=== PATIENT | female | born 1940 | race Caucasian/White ===

== ENCOUNTER → 2016-08-21 | Outpatient (CLI) | payer MEDICARE ==
[~2016-08-21] MED LIST: AMIT100T2 PO; AMIT100T6 PO; BIOT10TA PO; CLOR3.755; CLOR3.755 PO; LEVO.075 PO; LEVO50TA51 PO; MELO-1 PO; MOBI15TA PO; OMEP20TA PO; PROT40TA PO; RANI150T PO
[2016-08-21 09:48] LABS: HEMATOCRIT 39.6 % (35.0-46.0); MEAN CELL VOLUME 90.6 FL (80.0-100.0); MEAN CORPUSCULAR HEMOGLOBIN 30.4 PG (27.0-34.0); MEAN CORPUSCULAR HGB CONC 33.6 % (32.0-36.0); PLATELET COUNT 299 TH/MM3 (150-450); RED BLOOD COUNT 4.37 MIL/MM3 (4.00-5.30); RED CELL DISTRIBUTION WIDTH 12.7 % (11.6-17.2); REVIEW FLAG FINAL; WHITE BLOOD COUNT 5.6 TH/MM3 (4.0-11.0)
[2016-08-21 09:49] LABS: BACTERIA, URINE OCC /hpf; BLOOD, URINE NEG (NEG); COMMENT (UR) CATH-CULTURE IND; CULTURE IF INDICATED CATH CULTURE IND; GLUCOSE,URINE NEG (NEG); KETONE, URINE NEG (NEG); PH, URINE 6.5 (5.0-8.5); URINE COLOR LIGHT-YELLOW (YELLW/STRAW)
[2016-08-21 09:50] LABS: NITRITE,URINE POS (NEG)
[2016-08-21 09:56] LABS: APTT (PATIENT) 29.1 SEC (24.3-30.1); PROTHROMBIN TIME - PATIENT 10.5 SEC (9.8-11.6)
[2016-08-21 10:11] LABS: BICARBONATE 30.4 MEQ/L (21.0-32.0); POTASSIUM 3.9 MEQ/L (3.5-5.1)
--- NOTE | 2016-08-21 18:22 | EKG ---
Date Performed: 08/21/2016 Time Performed: 09:46:09 PTAGE: 76 years EKG: Sinus rhythm NORMAL ECG PREVIOUS TRACING 06/07/93 @ 22.00.43 Compared to prior tracing no significant change DOCTOR: Gladis Mchugh Interpretating Date/Time 08/21/2016 18:20:51
== END ==
LOC: CPRE 09:01
PROVIDERS: ATTEND Orthopaedic Surgery
DX: Z01.810 Encounter for preprocedural cardiovascular examination (principal); Z01.812 Encounter for preprocedural laboratory examination; M17.11 Unilateral primary osteoarthritis, right knee; M79.609 Pain in unspecified limb; B96.20 Unspecified Escherichia coli [E. coli] as the cause of diseases classified elsewhere; R82.99 Other abnormal findings in urine
CPT/HCPCS: 36415; 80048; 81001; 85027; 85610; 85730; 87077; 87086; 87186; 93005

== ENCOUNTER 2016-09-01 14:56 | Inpatient (IN) | payer MEDICARE ==
[~2016-09-01] VITALS: Ht 160 cm; Wt 60.7 kg
[~2016-09-01 14:56] MED LIST changes: -ASPI-99 PO; -DILA2TAB2 PO; -OXYC1TAB63 PO
[2016-09-02] VITALS (7 sets, daily range): BP systolic 121–156; BP diastolic 54–81; PULSE 71–92; RESP 18–19; TEMP 96.3–98.6; O2SAT 95–98
[2016-09-02] MEDS ORDERED: METOPROLOL TARTRATE 25 MG TAB PO PRN (05:45)
[2016-09-02] MEDS ORDERED: ceFAZolin 2 GM PREMIX 50 ML IV SCH (05:45)
[2016-09-02] MEDS ORDERED: CHLORHEXIDINE GLUCONATE 4% SOLN 120 ML BTL TOPICAL SCH (05:45)
[2016-09-02] MEDS ORDERED: CHLORHEXIDINE GLUCONATE 2 % 1 PACK (2 CLOTHS) TOPICAL PRN (05:45)
[2016-09-02] MEDS ORDERED: POVIDONE IODINE 5% (ANTISEPSIS KIT) 4 APPLICATIONS EACH NARE PRN (05:45)
[2016-09-02] MEDS ORDERED: INSULIN HUMAN REGULAR 1,000 UNITS/10 ML VIAL SQ PRN (05:45)
[2016-09-02] MEDS ORDERED: LACTATED RINGER'S 1000 ML IV PRN (05:45)
[2016-09-02] MEDS ORDERED: SODIUM CHLORID 0.9% 500 ML IV PRN (05:45)
[2016-09-02] MEDS ORDERED: TRANEXAMIC ACID IV SCH ×2 (06:00→09:00)
[2016-09-02] MEDS ORDERED: SODIUM CHLORIDE 0.9% IV SCH ×2 (06:00→09:00)
[2016-09-02] MEDS ORDERED: EXPAREL PERI-ARTICULAR INJECTION (TOTAL VOL. 100 ML) P-ARTICULR SCH ×2 (06:00)
[2016-09-02] MEDS ORDERED: GENTAMICIN SULFATE 80 MG/2 ML VIAL ONE (06:06)
[2016-09-02] MEDS ORDERED: MIDAZOLAM HCL 2 MG/2 ML VIAL ONE (06:37)
[2016-09-02] MEDS ORDERED: ASPI-99 PO (06:56)
[2016-09-02] MEDS ORDERED: Post-op Orders (for Pharmacy) MISC XX ONE (07:00)
[2016-09-02] MEDS ORDERED: SODIUM CHLORIDE 0.9% FLUSH 5 ML FLUSH IVF PRN (07:00)
[2016-09-02] MEDS ORDERED: ZOLPIDEM TARTRATE 5 MG TAB PO PRN (07:00)
[2016-09-02] MEDS ORDERED: TRANEXAMIC ACID INJ 0 MG in SODIUM CHLORIDE 0.9% INJ 100 ML IV SCH (07:00)
[2016-09-02] MEDS ORDERED: ACETAMINOPHEN/HYDROcodone 325 MG/7.5 MG TAB PO PRN (07:00)
[2016-09-02] MEDS ORDERED: ONDANSETRON HCL 4 MG/2 ML VIAL IVP PRN (07:00)
[2016-09-02] MEDS ORDERED: MAGNESIUM HYDROXIDE SUSP 30 ML CUP PO PRN (07:00)
--- NOTE | 2016-09-02 07:00 | HHI.FF ---
Face to Face Verification Diagnosis: (1) Status post total right knee replacement Physical Therapy Gait training Knee: Total knee, Protocol: Right, Gait training, Full weight bearing Right LE Weight Bearing: WB as tolerated Right LE Range of Motion: Active ROM (AROM, AAROM, PROM, PRE. ROM goal is 0 to 140 degrees. ROM in the OR was 0 to 150 degrees.) Nursing Nursing: Dressing changes Dressing Changes: Daily dressing change, Coverderm/Primapore Additional Instructions Remove steristrips on postop day 14. I have seen patient Katerina Odonnell on 09/02/16. My clinical findings support the need for the requested home health care services because: Ltd mobility - disease progression Limited ability to care for self High risk of falls I certify that my clinical findings support that this patient is homebound because: Post-op weakness Unsteady gait/balance Unsafe to leave home unassisted Abimael Henley MD ([facility]) Sep 02, 2016 07:00
[2016-09-02] MEDS ORDERED: CLORAZEPATE 3.75 MG PO (07:30)
[2016-09-02] MEDS ORDERED: [UNRECOGNIZED DRUG - OTHER] PO (07:30)
[2016-09-02] MEDS ORDERED: ASPIRIN EC 81 MG TABEC PO SCH (08:00)
[2016-09-02] MEDS ORDERED: NON-FORMULARY DRUG (Biotin 10 MG) PO SCH (09:00)
[2016-09-02] MEDS ORDERED: DO NOT ADM ANY ANTICOAGULANT DRUGS PRN (09:23)
--- NOTE | 2016-09-02 09:52 | RADRPT ---
EXAM DATE/TIME: 09/02/2016 09:31 [place] COMPARISON: No previous studies available for comparison. INDICATIONS : Post-op total right knee arthroplasty. MEDICAL HISTORY : None. SURGICAL HISTORY : Right knee arthroscopy. ENCOUNTER: Initial ACUITY: 1 day PAIN SCORE: 0/10 LOCATION: Right Knee FINDINGS: Two view examination of the right knee demonstrates the patient's had a total knee arthroplasty. Surg ical drains overlie the suprapatellar bursa. The hardware is in excellent position without complicati on.. CONCLUSION: Total knee arthroplasty in excellent position. Crow Bowles MD on September 02, 2016 at 9:49 Board Certified Radiologist. This report was verified electronically.
[2016-09-02] MEDS: SODIUM CHLORIDE 0.9% FLUSH 5 ML FLUSH IVF SCH ×2 (10:00→21:00)
[2016-09-02] MEDS: LACTATED RINGER'S 1000 ML INJ 1,000 ML IV SCH ×2 (10:00→22:30)
[2016-09-02] MEDS: KETOROLAC TROMETHAMINE 30 MG/ML (IVP) VIAL IVP SCH ×3 (10:48→23:28)
[2016-09-02] MEDS ORDERED: *LABETALOL HCL 100 MG/20 ML VIAL PERIprocedural Use ONLY ONE (11:02)
[2016-09-02] MEDS ORDERED: LACTATED RINGER'S 1000 ML INJ 1,000 ML IV ONE (12:00)
[2016-09-02] MEDS ORDERED: PHENYLEPH/NS 1000 MCG/10 ML SYR IV ONE (12:00)
[2016-09-02] MEDS ORDERED: PROPOFOL 200 MG/20 ML AMP IV ONE (12:00)
[2016-09-02] MEDS: ACETAMINOPHEN/HYDROcodone 325 MG/7.5 MG TAB PO PRN ×2 (12:24→17:41)
--- NOTE | 2016-09-02 14:36 | PD.CONS ---
HPI Service [facility] Hospitalists Consult Requested By Dr. Henley. Reason for Consult Medical management. Primary Care Physician Britta Almanza MD Diagnoses: (1) Primary osteoarthritis of right knee (2) Status post total right knee replacement History of Present Illness Written by Isadora Milton, acting as scribe for Dr. Alexander on 09/02/16 at 14:20. Ms. Odonnell is a 76-year-old female patient with a known medical history of anxiety, fibromyalgia, hypothyroidism, GERD, arthritis and osteoarthritis of the right knee who underwent a right total knee arthroplasty today, 09/02/16, by Dr. Henley. Hospitalist team has been consulted for medical management. Patient seen and examined in hospital room with son at bedside. Patient states that the degenerative changes and osteoarthritis began roughly in the year 2008 when she underwent a scope of the right knee by Dr. Henley. She states she has been battled intermittent swelling and pain in the right knee since that time of the scope which was mostly relieved by NSAID and rest. Eventually the pain began worse impeding her activity level and requiring use of a walker at home. Denies any recent fever, chills, cough, shortness of breath, abdominal pain, nausea, vomiting, diarrhea or dysuria. Does state that during the pre op work up she as found to have a UTI positive for E.coli which was treated with Cipro x 7 days prior to undergoing right knee arthroplasty. PCP is Dr. Almanza. Review of Systems Musculoskeletal: COMPLAINS OF: Joint pain (right knee) Psychiatric: COMPLAINS OF: Anxiety Except as stated in HPI: all other systems reviewed are Neg Past Family Social History Allergies: Coded Allergies: Flagyl (Verified Allergy, Intermediate, RASH, 08/21/16) Plaquenil (Verified Allergy, Intermediate, RASH, 08/21/16) Sulfa (Verified Allergy, Intermediate, swelling, 08/21/16) Past Medical History Arthritis Osteoarthritis of right knee Anxiety Hypertension Hypothyroidism GERD Fibromyalgia Past Surgical History Tonsillectomy Adenoidectomy Total hysterectomy Appendectomy Cholecystectomy Right mastectomy and reconstruction 1998 Bilateral carpal tunnel Reported Medications Active Reported Biotin 10 Mg Tab 10 Mg PO DAILY Clorazepate (Clorazepate Dipotassium) 3.75 Mg Tab 3.75 Mg PO BID PRN Omeprazole 20 Mg Tab 20 Mg PO DAILY Synthroid (Levothyroxine Sodium) 75 Mcg Tab 75 Mcg PO DAILY Meloxicam 15 Mg Tab 15 Mg PO DAILY Amitriptyline (Amitriptyline HCl) 100 Mg Tab 100 Mg PO HS Active Ordered Medications Current Medications Medications (Trade) Dose Ordered Sig/Ganesh Route Start Time Stop Time Status Last Admin Chlorhexidine Gluconate 1 applic 1 applic ONCE TOPICAL 09/02/16 05:45 09/05/16 05:44 09/02/16 06:00 Tranexamic Acid 568 mg/Sodium Chloride 105.68 ml @ 200 mls/ hr ONCE IV 09/02/16 09:00 09/02/16 15:00 09/02/16 10:08 Lactated Ringer's 1,000 ml @ 30 mls/hr Q24H PRN IV 09/02/16 05:45 09/05/16 05:44 09/02/16 05:50 Sodium Chloride 500 ml @ 30 mls/hr [id number] PRN IV 09/02/16 05:45 09/05/16 05:44 (Lr 1000 ml Inj) 1,000 ml @ 80 mls/hr [id number] IV 09/02/16 10:00 09/02/16 10:00 (NS Flush) 2 ml UNSCH PRN IVF 09/02/16 07:00 IV Flush 2 ml 2 ml BID IVF 09/02/16 09:00 09/02/16 10:00 (Ancef Inj/NS Inj) 100 ml @ 200 mls/hr Q6H IV 09/02/16 12:00 09/03/16 00:29 09/02/16 10:49 ([place] 7.5-325 Mg) 1 tab Q4H PRN PO 09/02/16 07:00 ([place] 7.5-325 Mg) 2 tab Q4H PRN PO 09/02/16 07:00 09/02/16 12:24 (Toradol Inj) 15 mg Q6H IVP 09/02/16 11:00 09/04/16 05:01 09/02/16 10:48 (Zofran Inj) 4 mg Q6H PRN IVP 09/02/16 07:00 (Colace) 100 mg BID PO 09/03/16 21:00 (Ambien) 5 mg HS PRN PO 09/02/16 07:00 (Milk Of Magnesia Liq) 30 ml DAILY PRN PO 09/02/16 07:00 (Elavil) 100 mg HS PO 09/02/16 21:00 (Synthroid) 75 mcg DAILY@0600 PO 09/03/16 06:00 Patient Own Medication PT OWN MED: CLORAZEP... BID PRN PO 09/02/16 07:30 Hold (Protonix) 20 mg DAILY PO 09/03/16 09:00 Miscellaneous Information ALL NURSING DEPARTME... UNSCH PRN .XX 09/02/16 09:23 09/03/16 09:22 (Ecotrin Ec) 81 mg Q12H PO 09/03/16 08:00 Family History Paternal family history significant for renal carcinoma and CABG x 2 Maternal family history significant for arthritis and CVA. Social History Patient lives at home with son. Denies any current or past tobacco use. Admits to occasional social drink. Denies any illicit drug use. Physical Exam Vital Signs Vital Signs Date Time Temp Pulse Resp B/P Pulse Ox O2 Delivery O2 Flow Rate FiO2 09/02/16 12:00 97.9 71 19 130/68 97 09/02/16 11:40 62 16 135/63 99 Room Air 09/02/16 11:30 62 16 160/77 100 Room Air 09/02/16 11:15 66 16 169/70 99 Room Air 09/02/16 11:00 80 16 172/81 99 Room Air 09/02/16 10:45 76 16 170/79 100 Room Air 09/02/16 10:30 72 16 175/77 100 Room Air 09/02/16 10:15 72 16 151/67 100 Room Air 09/02/16 10:00 74 16 133/62 100 09/02/16 09:45 76 16 118/56 100 Nasal Cannula 2 09/02/16 09:30 82 16 114/57 99 Nasal Cannula 2 09/02/16 09:25 97.8 88 16 109/59 97 Nasal Cannula 2 09/02/16 05:56 98.6 92 18 156/81 96 Physical Exam GENERAL: Well-nourished, well-developed patient, in no apparent distress. SKIN: No rashes, ecchymoses or lesions. Warm and dry. Right lower extremity bandage in place, c/d/i. HEENT: Atraumatic. Normocephalic. Pupils equal round and reactive. Extraocular motions intact. No scleral icterus. No injection or drainage. Nose without bleeding. Airway patent. NECK: Trachea midline. No JVD. Supple. CARDIOVASCULAR: Regular rate and rhythm. No murmur appreciated. RESPIRATORY: Clear to auscultation. Breath sounds equal bilaterally. No wheezes , rales, or rhonchi. GASTROINTESTINAL: Abdomen soft, non-tender, nondistended. No guarding. MUSCULOSKELETAL: Extremities without clubbing, cyanosis, or edema. No joint tenderness, effusion, or edema noted. NEUROLOGICAL: Awake and alert. Cranial nerves II through XII intact. Motor and sensory grossly within normal limits. Five out of 5 muscle strength in all muscle groups. Normal speech. Laboratory Laboratory Tests Test 09/02/16 05:50 Blood Type A POSITIVE Antibody Screen NEGATIVE Blood Bank Comment Imaging Last Impressions Knee X-Ray 09/02/16 0650 Signed Impressions: Service Date/Time: Friday, September 02, 2016 09:31 - CONCLUSION: Total knee arthroplasty in excellent position. Crow Bowles MD Assessment and Plan Assessment and Plan Ms. Odonnell is a 76-year-old female patient with a known medical history of anxiety, fibromyalgia, hypothyroidism, GERD, arthritis and osteoarthritis of the right knee who underwent a right total knee arthroplasty today, 09/02/16, by Dr. Henley. Hospitalist team has been consulted for medical management. Status post total right knee arthroplasty - Post op day 0, 09/02/16 - Dressing changes and immobilizer per ortho recommendations. - Monitor for constipation. Colace 100 mg PO BID. Milk Of Magnesium PRN as needed. - Encourage PO intake. Continue regular diet. - Control pain. [place] 7.5/325 mg PO q4h PRN per pain scale. Toradol IV scheduled. - Monitor for nausea, Zofran PRN. Hypertension, chronic: Controlled at this time. Monitor BP. Other chronic medical problems include anxiety, arthritis, fibromyalgia, hypothyroidism, and GERD and are stable at this time. Home medications are continued as indicated. GI prophylaxis: Protonix DVT prophylaxis: SCDs. Lovenox. Thank you for this consultation. Will follow with you. This note was transcribed by [email or web address] [Isadora Milton]. I, Dr. Kai Alexander personally performed the history, physical exam, and medical decision making; and confirmed the accuracy of the information in the transcribed note. Authenticated by Dr. Kai Alexander on 09/03/16 at 07:51. Isadora Milton Sep 02, 2016 14:36 Kai Alexander MD Sep 03, 2016 07:51
[2016-09-02] MEDS: AMITRIPTYLINE HCL 100 MG TAB PO SCH (21:29)
[2016-09-02] MEDS: oxyCODONE/ACETAMINOPHEN 5 MG/325 MG TAB PO PRN (21:42)
[2016-09-02] MEDS ORDERED: oxyCODONE/ACETAMINOPHEN 5 MG/325 MG TAB PO PRN (22:00)
[2016-09-03 04:10] VITALS: BP 136/56; PULSE 86; RESP 18; TEMP 97.1; O2SAT 96
[2016-09-03] MEDS: KETOROLAC TROMETHAMINE 30 MG/ML (IVP) VIAL IVP SCH ×4 (05:27→23:28)
[2016-09-03] MEDS: LEVOTHYROXINE SODIUM 75 MCG TAB PO SCH (05:27)
[2016-09-03] MEDS: oxyCODONE/ACETAMINOPHEN 5 MG/325 MG TAB PO PRN ×4 (05:29→20:24)
[2016-09-03 06:58] LABS: BICARBONATE 26.5 MEQ/L (21.0-32.0); POTASSIUM 3.8 MEQ/L (3.5-5.1)
[2016-09-03 07:03] LABS: HEMATOCRIT 31.1 % (35.0-46.0); MEAN CELL VOLUME 92.8 FL (80.0-100.0); MEAN CORPUSCULAR HEMOGLOBIN 31.3 PG (27.0-34.0); MEAN CORPUSCULAR HGB CONC 33.7 % (32.0-36.0); PLATELET COUNT 216 TH/MM3 (150-450); RED BLOOD COUNT 3.35 MIL/MM3 (4.00-5.30); RED CELL DISTRIBUTION WIDTH 12.7 % (11.6-17.2); REVIEW FLAG FINAL; WHITE BLOOD COUNT 7.6 TH/MM3 (4.0-11.0)
--- NOTE | 2016-09-03 07:14 | PD.ORT.PN ---
Subjective Post Op Day #: 1 Subjective Remarks She is doing well, with little pain. She had nausea with [place] but tolerates Percocet. Range of Motion 0 to 90 degrees. Distance Walked 150 feet. Objective Vitals Vital Signs Date Time Temp Pulse Resp B/P Pulse Ox O2 Delivery O2 Flow Rate FiO2 09/03/16 04:10 97.1 86 18 136/56 96 09/02/16 23:31 98.5 84 18 137/63 97 09/02/16 20:43 96 21 09/02/16 20:28 96.7 72 18 121/54 96 09/02/16 18:45 16 09/02/16 18:45 16 09/02/16 16:00 96.3 77 18 152/64 95 09/02/16 14:22 98 09/02/16 12:00 97.9 71 19 130/68 97 09/02/16 11:40 62 16 135/63 99 Room Air 09/02/16 11:30 62 16 160/77 100 Room Air 09/02/16 11:15 66 16 169/70 99 Room Air 09/02/16 11:00 80 16 172/81 99 Room Air 09/02/16 10:45 76 16 170/79 100 Room Air 09/02/16 10:30 72 16 175/77 100 Room Air 09/02/16 10:15 72 16 151/67 100 Room Air 09/02/16 10:00 74 16 133/62 100 09/02/16 09:45 76 16 118/56 100 Nasal Cannula 2 09/02/16 09:30 82 16 114/57 99 Nasal Cannula 2 09/02/16 09:25 97.8 88 16 109/59 97 Nasal Cannula 2 I/O 09/02/16 09/02/16 09/02/16 09/03/16 09/03/16 09/03/16 07:00 15:00 23:00 07:00 15:00 23:00 Intake Total 100 ml 1080 ml 240 ml Output Total 50 ml 50 ml 30 ml Balance 50 ml 1030 ml 210 ml Intake Oral 1080 ml 240 ml IV Total 100 ml Output Drainage Total 50 ml 50 ml 30 ml # Voids 5 2 # Bowel Movements 0 0 Result Diagram: 09/03/16 0556 Imaging Last 72 hours Impressions Knee X-Ray 09/02/16 0650 Signed Impressions: Service Date/Time: Friday, September 02, 2016 09:31 - CONCLUSION: Total knee arthroplasty in excellent position. Crow Bowles MD Objective Remarks She is resting comfortably, supine in bed in the [facility]. The dressing is dry and intact. The neurovascular status is intact. Assessment & Plan Ortho Post Op Day #: 1 Problem List: (1) Status post total right knee replacement Plan: Continue postop care and PT. Assessment and Plan Condition: Good. Orthopaedically stable. DVT prophylaxis: TEDs, sequentials, ASA. Discharge plans: Home with [facility]. Has appointment. Rx: Percocet 5/325. Abimael Henley MD ([place]) Sep 03, 2016 07:13
[2016-09-03] MEDS ORDERED: OXYC1TAB63 PO (07:49)
[2016-09-03 08:00] VITALS: BP 121/53; PULSE 89; RESP 16; TEMP 96.6; O2SAT 96
[2016-09-03] MEDS: SODIUM CHLORIDE 0.9% FLUSH 5 ML FLUSH IVF SCH ×2 (09:00→20:24)
[2016-09-03] MEDS: ASPIRIN EC 81 MG TABEC PO SCH ×2 (09:41→20:22)
[2016-09-03] MEDS: PANTOPRAZOLE SOD 20 MG DELAYED RELEASE TAB PO SCH (09:41)
[2016-09-03] MEDS: LACTATED RINGER'S 1000 ML INJ 1,000 ML IV SCH ×2 (09:42→23:30)
[2016-09-03 09:51] VITALS: O2SAT 98
--- NOTE | 2016-09-03 11:12 | HHI.PR ---
Subjective Remarks Hemoglobin 10.5 this morning. Patient's only complaint is that her pain medications are holding her pain. We discussed adding a breakthrough pain treatment. Objective Vital Signs Date Time Temp Pulse Resp B/P Pulse Ox O2 Delivery O2 Flow Rate FiO2 09/03/16 09:51 98 21 09/03/16 08:00 96.6 89 16 121/53 96 09/03/16 04:10 97.1 86 18 136/56 96 09/02/16 23:31 98.5 84 18 137/63 97 09/02/16 20:43 96 21 09/02/16 20:28 96.7 72 18 121/54 96 09/02/16 18:45 16 09/02/16 18:45 16 09/02/16 16:00 96.3 77 18 152/64 95 09/02/16 14:22 98 09/02/16 12:00 97.9 71 19 130/68 97 09/02/16 11:40 62 16 135/63 99 Room Air 09/02/16 11:30 62 16 160/77 100 Room Air 09/02/16 11:15 66 16 169/70 99 Room Air I/O 09/02/16 09/02/16 09/02/16 09/03/16 09/03/16 09/03/16 06:59 14:59 22:59 06:59 14:59 22:59 Intake Total 100 ml 1080 ml 240 ml Output Total 50 ml 50 ml 30 ml Balance 50 ml 1030 ml 210 ml Intake Oral 1080 ml 240 ml IV Total 100 ml Output Drainage Total 50 ml 50 ml 30 ml # Voids 5 2 # Bowel Movements 0 0 Result Diagram: 09/03/16 0556 09/03/16 0556 Objective Remarks GENERAL: NAD, A&Ox3 HEAD: Normocephalic. NECK: Supple, trachea midline. No lymphadenopathy. EYES: No scleral icterus. No injection or drainage. CARDIOVASCULAR: Regular rate and rhythm without murmurs, gallops, or rubs. RESPIRATORY: Breath sounds equal bilaterally. No accessory muscle use. GASTROINTESTINAL: Abdomen soft, non-tender, nondistended. MUSCULOSKELETAL: No cyanosis, or edema. Right knee bandage with limited range of motion secondary to pain, postop. SKIN: Warm and dry. NEURO: No focal neurological deficitis. A/P Problem List: (1) Primary osteoarthritis of right knee ICD Code: M17.11 (2) Status post total right knee replacement ICD Code: Z96.651 Assessment and Plan Assessment and plan 76-year-old female status post right total knee. Status post total right knee arthroplasty When necessary Dilaudid for breakthrough pain added to current pain regime. Continue Percocet for pain (she had nausea with [place]) Tolerating diet Working with PT Hypertension Resume baseline treatments Controlled Follow blood pressure anxiety arthritis fibromyalgia hypothyroidism GERD Continue baseline treatments All these conditions are stable this time Follow as an outpatient DVT prophylaxis SCDs. Joshua. Kai Alexander MD Sep 03, 2016 11:12
[2016-09-03 12:00] VITALS: BP 103/46; PULSE 88; RESP 16; TEMP 96.2; O2SAT 97
[2016-09-03] MEDS: HYDROmorphone HCL 2 MG TAB PO PRN ×2 (12:08→17:06)
[2016-09-03 16:00] VITALS: BP 136/50; PULSE 86; RESP 16; TEMP 96.1; O2SAT 98
[2016-09-03 20:08] VITALS: BP 143/62; PULSE 90; RESP 18; TEMP 97.4; O2SAT 95
[2016-09-03] MEDS: DOCUSATE SODIUM 100 MG CAP PO SCH (20:23)
[2016-09-03] MEDS: AMITRIPTYLINE HCL 100 MG TAB PO SCH (20:23)
[2016-09-04 00:12] VITALS: BP 106/52; PULSE 93; RESP 18; TEMP 98.4; O2SAT 94
[2016-09-04 03:30] VITALS: BP 124/63; PULSE 94; RESP 18; TEMP 98.9; O2SAT 96
[2016-09-04] MEDS: LEVOTHYROXINE SODIUM 75 MCG TAB PO SCH (05:26)
[2016-09-04] MEDS: oxyCODONE/ACETAMINOPHEN 5 MG/325 MG TAB PO PRN ×2 (05:27→11:48)
[2016-09-04] MEDS: KETOROLAC TROMETHAMINE 30 MG/ML (IVP) VIAL IVP SCH (05:28)
--- NOTE | 2016-09-04 06:52 | PD.ORT.PN ---
Subjective Post Op Day #: 2 Subjective Remarks She is doing well, with little pain. She has done well with PT. Range of Motion 0 to 90 degrees. Distance Walked 90 feet, limited by nausea. Objective Vitals Vital Signs Date Time Temp Pulse Resp B/P Pulse Ox O2 Delivery O2 Flow Rate FiO2 09/04/16 03:30 98.9 94 18 124/63 96 09/04/16 00:28 18 09/04/16 00:12 98.4 93 18 106/52 94 09/03/16 21:24 18 09/03/16 20:08 97.4 90 18 143/62 95 09/03/16 16:00 96.1 86 16 136/50 98 09/03/16 12:00 96.2 88 16 103/46 97 09/03/16 09:51 98 21 09/03/16 08:00 96.6 89 16 121/53 96 I/O 09/03/16 09/03/16 09/03/16 09/04/16 09/04/16 09/04/16 07:00 15:00 23:00 07:00 15:00 23:00 Intake Total 240 ml 720 ml 840 ml 360 ml Output Total 30 ml Balance 210 ml 720 ml 840 ml 360 ml Intake Oral 240 ml 720 ml 840 ml 360 ml Output Drainage Total 30 ml # Voids 2 3 6 1 # Bowel Movements 0 0 0 0 Result Diagram: 09/03/16 0556 09/03/16 0556 Imaging Last 72 hours Impressions Knee X-Ray 09/02/16 0650 Signed Impressions: Service Date/Time: Friday, September 02, 2016 09:31 - CONCLUSION: Total knee arthroplasty in excellent position. Crow Bowles MD Objective Remarks She is resting comfortably, supine in bed in the [facility]. The dressing is dry and intact. There is no erythema or induration. The neurovascular status is intact. Assessment & Plan Ortho Post Op Day #: 2 Problem List: (1) Status post total right knee replacement Plan: Continue postop care and PT. Assessment and Plan Condition: Good. Orthopaedically stable. DVT prophylaxis: TEDs, sequentials, ASA. Discharge plans: Home with C. Has appointment. Rx: Percocet 5/325. Abimael Henley MD ([place]) Sep 04, 2016 06:52
[2016-09-04 07:06] LABS: REVIEW FLAG FINAL
[2016-09-04 08:00] VITALS: BP 121/61; PULSE 92; RESP 18; TEMP 98.1; O2SAT 95
[2016-09-04] MEDS: DOCUSATE SODIUM 100 MG CAP PO SCH (08:24)
[2016-09-04] MEDS: PANTOPRAZOLE SOD 20 MG DELAYED RELEASE TAB PO SCH (08:24)
[2016-09-04] MEDS: ASPIRIN EC 81 MG TABEC PO SCH (08:25)
[2016-09-04] MEDS: HYDROmorphone HCL 2 MG TAB PO PRN (08:25)
[2016-09-04] MEDS: SODIUM CHLORIDE 0.9% FLUSH 5 ML FLUSH IVF SCH (08:31)
[2016-09-04 09:25] VITALS: RESP 18
[2016-09-04] MEDS ORDERED: DILA2TAB2 PO (11:10)
--- NOTE | 2016-09-04 11:11 | HHI.PR ---
Subjective Remarks Hemoglobin on 9.8. No need for transfusion through time. Patient is stable for discharge to home today. Ambulation is improved. Pain control is also improved. She is using 2 mg by mouth Dilaudid for breakthrough pain as Percocet is not completely holding her pain and she has been tolerating this treatment well for 24 hours. Medically stable and cleared for discharge home today. Objective Vital Signs Date Time Temp Pulse Resp B/P Pulse Ox O2 Delivery O2 Flow Rate FiO2 09/04/16 08:00 98.1 92 18 121/61 95 09/04/16 03:30 98.9 94 18 124/63 96 09/04/16 00:28 18 09/04/16 00:12 98.4 93 18 106/52 94 09/03/16 21:24 18 09/03/16 20:08 97.4 90 18 143/62 95 09/03/16 16:00 96.1 86 16 136/50 98 09/03/16 12:00 96.2 88 16 103/46 97 I/O 09/03/16 09/03/16 09/03/16 09/04/16 09/04/16 09/04/16 07:00 15:00 23:00 07:00 15:00 23:00 Intake Total 240 ml 720 ml 840 ml 360 ml Output Total 30 ml Balance 210 ml 720 ml 840 ml 360 ml Intake Oral 240 ml 720 ml 840 ml 360 ml Output Drainage Total 30 ml # Voids 2 3 6 1 # Bowel Movements 0 0 0 0 Result Diagram: 09/04/16 0646 09/03/16 0556 Objective Remarks GENERAL: NAD, A&Ox3 HEAD: Normocephalic. NECK: Supple, trachea midline. No lymphadenopathy. EYES: No scleral icterus. No injection or drainage. CARDIOVASCULAR: Regular rate and rhythm without murmurs, gallops, or rubs. RESPIRATORY: Breath sounds equal bilaterally. No accessory muscle use. GASTROINTESTINAL: Abdomen soft, non-tender, nondistended. MUSCULOSKELETAL: No cyanosis, or edema. Right knee bandage with limited range of motion secondary to pain, postop. SKIN: Warm and dry. NEURO: No focal neurological deficitis. A/P Problem List: (1) Primary osteoarthritis of right knee ICD Code: M17.11 (2) Status post total right knee replacement ICD Code: Z96.651 Assessment and Plan Assessment and plan 76-year-old female status post right total knee. Cleared for discharge home today. Continue pain treatments at home. Status post total right knee arthroplasty When necessary Dilaudid for breakthrough pain added to current pain regime. Continue Percocet for pain (she had nausea with [place]) Tolerating diet Working with PT Hypertension Resume baseline treatments Controlled Follow blood pressure anxiety arthritis fibromyalgia hypothyroidism GERD Continue baseline treatments All these conditions are stable this time Follow as an outpatient DVT prophylaxis SCDs. Lovenox. Kai Alexander MD Sep 04, 2016 11:11
--- NOTE | 2016-09-04 13:16 | MP ---
cc: Nancy COATS. DATE OF SURGERY 09/02/2016 REDICTATION OF DICTATION FROM 09/02/2016 PREOPERATIVE DIAGNOSIS Primary osteoarthritis, right knee. POSTOPERATIVE DIAGNOSIS Primary osteoarthritis, right knee. OPERATION PERFORMED Right total knee with Adbiel Triathlon prosthesis (uncemented). SURGEON Abimael Coats MD [facility] ANESTHESIA Spinal with supplemental adductor canal block and local. INDICATIONS AND FINDINGS This 76-year-old woman had significant pain in her left knee because of primary osteoarthritis. She had not responded to conservative measures as detailed in the history and physical examination. Physical findings showed significant degenerative change in the knee. X-rays showed loss of articular cartilage to [id number] with exposed subchondral bone and osteophytes. Operative findings were consistent with the radiographic findings with there being significant loss of articular cartilage down to exposed subchondral bone, osteophytes and eburnation. PROSTHESIS USED Abdiel Triathlon prosthesis with the femur being a size 2 cruciate-retaining uncemented, the tibia being a size 3 tritanium baseplate with a 9-mm cruciate-retaining X3 polyethylene spacer and a 32-mm asymmetric tritanium backed patella. PROCEDURE The patient was brought to the operating room which was a clean-air operating suite. She had an adductor canal block and spinal anesthetic administered by Shivam Childers MD. She was then placed in a supine position on the operating table with a small bolster under the right hip. A pneumatic tourniquet was placed about the right thigh but was not inflated during the procedure. She received prophylactic antibiotics in the form of Ancef 2 grams at the appropriate interval on arrival in the operating room. She also received tranexamic acid to help with hemostasis. The right knee was then prepped with alcohol, Hibiclens and Chloraprep and draped in the usual manner with the knee draped free. An appropriate time-out procedure was carried out. Local anesthesia was administered in the incision site prior to making the incision. An incision was then made from about three fingerbreadths above the superior medial pole of the patella down to the tibial tubercle. The incision was deepened through the subcutaneous tissues to the retinacular structures which were exposed medially and laterally. A medial retinacular incision was then made from the superior medial pole of the patella down to the tibial tubercle and up into the quadriceps, splitting it longitudinally in the medial one-third. The patella was reflected. The infrapatellar fat pad was debulked. Medial and lateral dissection was carried out. The posterior surface of the patella was excised with the oscillating saw taking care to prevent injury to the extensor mechanism. Patella protector was applied. The patella was flipped into the lateral gutter. A fenestration was made in the distal end of the femur for intramedullary referencing. The distal femoral cutting guide and jig was then assembled for a 5-degree, 8-mm cut. The cutting block was stabilized with pins. The jig was removed. This femoral cut was completed with the oscillating saw. The sizing guide was then positioned along Whitesides line and the epicondylar axis. The size was then determined to be the size as noted above. A 4-in-1 cutting block was positioned on the distal femur and stabilized with pins. Anterior and posterior cuts were made, followed by posterior and anterior chamfer cuts. Osteophytes were trimmed. Attention was then directed to the tibia. Medial and lateral meniscectomies were initiated and completed. The anterior cruciate ligament had been excised. With retractors in place, the extramedullary tibial cutting guide was positioned in place and stabilized. Rotation was checked and was found to be appropriate. The stylus was then used on the lateral side to determine the appropriate depth of cut. The cutting block was stabilized with pins. The depth of cut was verified and adjusted with the spacer block. A proximal tibial cut was then completed with the oscillating saw. After the bone was removed, the depth of cut was verified and this did not appear to be appropriate. For this reason the cutting block was then repositioned with the stylus to allow for a slightly greater posterior cuts. The proximal tibial cut was then completed with the oscillating saw again. This gave an appropriate cut. The tibial baseplate trial which was a size [address]. This appeared to be appropriate. A 9-mm spacer was inserted. The femoral trial was inserted and impacted into place. With these in position, the tibial baseplate was stabilized with pins at the appropriate level. Drill holes were then made for the size 32-mm patella. The knee was taken through a range of motion. The motion was excellent obtaining 0 degrees extension to 150 degrees of flexion with normal tracking of the patella and no instability. The femoral drill holes were made. The femoral and patella trials were removed. The tibial punch was impacted through the proximal tibia. The guide was removed as was the baseplate. The tibial drill guide was positioned. Drill holes were made. Local anesthesia was administered throughout the knee with Exparel. After cleaning the cut ends of bone with pulse lavage, the tibial baseplate was impacted into place and seated appropriately, followed by placement of the spacer. The femoral component was then impacted into place and seated appropriately. The patellar component was then positioned in place and tightened with the patella vice. The remainder of the Exparel was injected throughout the knee. The drain was brought out the superolateral aspect of the suprapatellar pouch. Wound closure then commenced using 0 Vicryl interrupted [id number] sutures for retinacular and capsular structures and fascial structures, 2-0 Vicryl interrupted simple sutures with buried knots for the subcutaneous tissues and 4-0 Monocryl continuous subcuticular closure for the skin. The wound was then dressed with Steri-Strips, followed by dry dressing, sterile Sof-Rol, cooling pad, further sterile Sof-Rol and Evelio bandage from the base of the toes to midthigh. The patient was transferred from the operating room to the recovery room in satisfactory condition having tolerated the procedure well. COUNTS Correct. SPECIMENS None. ESTIMATED BLOOD LOSS Less than 100 mL. MD MARTINE Lopez/TAYLA /6:35 PM /1:05 PM
== END 2016-09-04 12:06 | disposition home health service (06) | DRG 470 ==
LOC: HSDI 09-02 05:16 → N06B 09-02 11:57
PROVIDERS: ADMIT Orthopaedic Surgery; ATTEND Orthopaedic Surgery
PROC: 0SRC0JA Replacement of Right Knee Joint with Synthetic Substitute, Uncemented, Open Approach (ICD-10-PCS; principal; 2016-09-02 06:42)
DX: M17.11 Unilateral primary osteoarthritis, right knee (principal); I10 Essential (primary) hypertension; E03.9 Hypothyroidism, unspecified; F41.9 Anxiety disorder, unspecified; K21.9 Gastro-esophageal reflux disease without esophagitis; M79.7 Fibromyalgia
CPT/HCPCS: 73560; 80048; 85014; 85018; 85027; 86850; 86900; 86901; 94150; C1776; C9290; J0690; J1580; J1885; J2250; J2370; J2405; J3010; J7120

== ENCOUNTER → 2016-09-01 | Outpatient (CLI) | payer MEDICARE ==
[~2016-09-01] MED LIST changes: -AMIT100T6 PO; +ASPI-99 PO; -CLOR3.755; +DILA2TAB2 PO; -LEVO50TA51 PO; -MOBI15TA PO; +OXYC1TAB63 PO; -PROT40TA PO; -RANI150T PO
[2016-09-01 09:00] LABS: BLOOD, URINE NEG (NEG); COMMENT (UR) CATH-CULT NOT IND; CULTURE IF INDICATED CATH CULTURE NOT IND; GLUCOSE,URINE NEG (NEG); KETONE, URINE NEG (NEG); NITRITE,URINE NEG (NEG); PH, URINE 5.5 (5.0-8.5); SQUAMOUS EPITHELIAL CELL URINE <1 /hpf (0-5); URINE COLOR LIGHT-YELLOW (YELLW/STRAW)
== END ==
LOC: CPRE 08:04
PROVIDERS: ATTEND Orthopaedic Surgery
DX: Z01.812 Encounter for preprocedural laboratory examination (principal)
CPT/HCPCS: 81001